=== PATIENT | female | born 1985 | race Caucasian/White ===

== ENCOUNTER 2021-11-01 17:41 | Emergency (ER) | payer OTHER, SELFPAY ==
[2021-11-01 18:09] VITALS: BP 123/81; PULSE 116; RESP 16; TEMP 38; O2SAT 97
[2021-11-01 18:16] VITALS: BP 123/81; PULSE 116; RESP 16; TEMP 38; O2SAT 97
--- NOTE | 2021-11-01 18:54 | ED.URI ---
HPI - URI/Sore Throat General Chief Complaint: Upper Respiratory Infection Stated Complaint: bhavna,throat hurts,cough Source: patient and RN notes reviewed Mode of arrival: ambulatory History of Present Illness HPI Narrative: This is a 36-year-old female presented to urgent care with complaints of a productive cough with greenish sputum, congestion, fever, nausea without vomiting,. Patient notes that she took Robitussin at home for her symptoms which started last night. She did test negative for Covid at work today. The patient denies SOB, CP, palpitation, extremity numbness, lightheadedness, dizziness, constipation, diarrhea, or chills. Related Data Home Medications Medication Instructions Recorded Confirmed levothyroxine 50 mcg PO DAILY 11/01/21 11/01/21 Allergies Allergy/AdvReac Type Severity Reaction Status Date / Time Sulfa (Sulfonamide Allergy Unknown Rash Verified 11/01/21 18:15 Antibiotics) Review of Systems Review of Systems: A 14 organ system Review of Systems was performed and pertinent positives included in the HPI, otherwise remaining ROS is negative. [facility] Family History Family History (Updated 11/01/21 @ 18:54 by AMANDA Magana) Father Family history of liver disease Other Family history non-contributory Social History Social History Smoking status: Never smoker Alcohol intake: current Exam Narrative: GENERAL: This is a well-nourished, well-developed patient, in no apparent distress. HEAD: normocephalic, atraumatic. EYES: PERRL. Sclera clear/white. Vision is grossly intact. EARS: External ears normal, auditory canals clear and without drainage, TMs normal without perforation. Hearing grossly intact. NOSE: External nose normal with no obvious nasal discharge, nares without redness, no rhinorrhea. THROAT: Mucous membranes moist, posterior pharynx clear. NECK: Neck supple, non-tender without lymphadenopathy, masses or thyromegaly. CARDIOVASCULAR: Regular rate and rhythm without murmurs, gallops, or rubs. RESPIRATORY: Clear to auscultation. Breath sounds equal bilaterally. No wheezes, rales, or rhonchi. GASTROINTESTINAL: Abdomen soft, non-tender, nondistended. Bowel sounds are active. No hepato-splenomegaly, or palpable masses. No guarding. SKIN: warm, intact with no suspicious lesions or rash, good texture and turgor. NEURO: awake, alert, and oriented to person, place and time. There were no obvious focal neurologic abnormalities. Steady gait EXTREMITIES: Normal range of motion. No edema. No calf tenderness. Negative Homans sign bilaterally. BACK: Nontender without deformity or crepitance. No flank tenderness. Course Course Emergency Course: Patient was discharged with Tessalon Perles, guaifenesin, Zofran, Flonase Vital Signs Vital signs: Vital Signs Temperature 100.4 F H 11/01/21 18:09 Pulse Rate 116 H 11/01/21 18:09 Respiratory Rate 16 11/01/21 18:09 Blood Pressure 123/81 11/01/21 18:09 Pulse Oximetry 97 11/01/21 18:09 Temperature 100.4 F H 11/01/21 18:16 Pulse Rate 116 H 11/01/21 18:16 Respiratory Rate 16 11/01/21 18:16 Blood Pressure 123/81 11/01/21 18:16 Pulse Oximetry 97 11/01/21 18:16 MDM - URI/Sore Throat Differential Diagnosis Differential diagnosis: Likely upper respiratory infection, sinusitis, viral infection, bronchitis and influenza Lab Data Labs: Influenza A Screen Negative Reference Range: Negative Influenza B Screen Negative Reference Range: Negative Strep Screen Presumptive Negative *(Reference Range: Negative)* Strep Screen Presumptive Negative *(Reference Range: Negative)* Discharge Plan Discharge Clinical Impression: Viral in
== END 2021-11-01 18:53 | disposition home or self-care (01) ==
PROVIDERS: Emergency Provider Nurse Practitioner; PCP Nurse Practitioner Family
DX: B34.9 Viral infection, unspecified (principal)
CPT/HCPCS: 87081; 87804; 87880; 99213; G0463

== ENCOUNTER 2021-11-11 15:43 | Emergency (ER) | payer OTHER, SELFPAY ==
[2021-11-11 15:48] VITALS: BP 130/87; PULSE 98; RESP 16; TEMP 37; O2SAT 100
--- NOTE | 2021-11-11 16:41 | ED.DIZZY ---
HPI - Dizziness General Chief Complaint: Dizziness Stated Complaint: Dizziness Source: patient and RN notes reviewed Limitations: no limitations History of Present Illness HPI Narrative: Vaccinated overweight patient, non-smoker/nondrinker, presents lightheadedness. Patient states she has 1 day history of lightheadedness, that seems at face/ frontal sinuses. Patient was seen here about a week to week and a half ago and treated symptomatically for upper respiratory symptoms of cough that improved. Symptoms are unrelated to position ; no fever, URI?sinusitis now, true vertigo, vomiting/diarrhea/dehydration,speech-visual changes, bleeding--LMP was about 1 month ago. No loss of taste/smell, CP, rash, S OB. Related Data Home Medications Medication Instructions Recorded Confirmed levothyroxine 50 mcg PO DAILY 11/01/21 11/11/21 Allergies Allergy/AdvReac Type Severity Reaction Status Date / Time Sulfa (Sulfonamide Allergy Unknown Rash Verified 11/11/21 16:22 Antibiotics) Review of Systems Review of Systems: General/Constitutional: No weight loss,fever Eyes: N0: Redness,discharge Ears/Nose/Throat: No: Epistaxis,ear discharge Respiratory: Denies: Hemoptysis Gastrointestinal: No Vomiting, Bleeding-rectal Skin: No Lumps, eruption Neurologic: No Focal Weakness,Sz Hematologic: Denies: Petechiae/Purpura Psychiatric: No: Suicida ideationl All Other Systems: Reviewed and Negative [facility] Family History Family History (Updated 11/01/21 @ 18:54 by AKUA Magana-C) Father Family history of liver disease Other Family history non-contributory Social History Social History Smoking status: Never smoker Alcohol intake: current Comments At time of signature, agree with nursing past medical, surgical, social and family history. There is no relevant family history pertinent to the presenting complaint Exam Narrative: General Appearance: Well appearing, Well nourished EYE: PERRLA, Conjunctiva clear, EOMI no nystagmus Neurological: A&O x3, CN II-XII intact, nl finger-nose, gait Ears: Auditory canal normal, TM normal Nose: Rhinorrhea, Mucousal erythema Mouth/Throat: MM moist, Uvula midline, no pharyngeal erythema Neck: Supple, No adenopathy Respiratory: No respiratory distress, Breath sounds equal, Clear to auscultation Cardiovascular: RRR, No JVD Musculoskeletal: Non tender, Normal strength Skin: Warm, Dry Psychiatric: Normal mood, Normal affect Course Vital Signs Vital signs: Vital Signs Temperature 98.6 F 11/11/21 15:48 Pulse Rate 98 11/11/21 15:48 Respiratory Rate 16 11/11/21 15:48 Blood Pressure 130/87 11/11/21 15:48 Pulse Oximetry 100 11/11/21 15:48 Temperature 98.6 F 11/11/21 15:48 Pulse Rate 98 11/11/21 15:48 Respiratory Rate 16 11/11/21 15:48 Blood Pressure 130/87 11/11/21 15:48 Pulse Oximetry 100 11/11/21 15:48 MDM - Dizziness Lab Data Labs: UCG Bedside Result Negative Reference Range: Negative Urine Glucose Negative Reference Range: Negative Urine Bilirubin Negative Reference Range: Negative Urine Ketone Negative Reference Range: Negative Urine Specific [place] 1.015 Reference Range:1.001-1.035 Urine Blood Trace Reference Range: Negative * * Urine pH 6.5 Reference Range: 5.0-9.0 Urine Protein Negative R
== END 2021-11-11 16:49 | disposition home or self-care (01) ==
PROVIDERS: Emergency Provider Emergency Medicine; PCP Nurse Practitioner Family
DX: R42 Dizziness and giddiness (principal); Z20.822 Contact with and (suspected) exposure to COVID-19
CPT/HCPCS: 81003; 81025; 99213; G0463

== ENCOUNTER 2022-11-27 13:37 | Emergency (ER) | payer OTHER, SELFPAY ==
--- NOTE | 2022-11-27 13:42 | ED.FEMALEGU ---
HPI - Female Genitourinary General Chief complaint: Urogenital-Female Stated complaint: poss uti Time Seen by Provider: 11/27/22 13:42 Source: patient and RN notes reviewed History of Present Illness HPI Narrative: patient is a 37-year-old female presents to urgent care with complaint of irritation with urination and urgency of urination after a lot of water intake. Patient states that she uses baby wipes to the periarea which may be a cause of the irritation. Patient has not taken anything [id number] for her symptoms. Denies any fever, chills, nausea, vomiting, abdominal pain, low back pain or other urinary symptoms. No other acute complaints. No acute distress noted. Patient aware of the plan of care. Some parts of this dictation were generated by voice recognition software and may contain typographical and/or grammatical inaccuracies. Related Data Home Medications Medication Instructions Recorded Confirmed levothyroxine 50 mcg tablet 50 mcg PO DAILY 11/01/21 08/11/22 Allergies Allergy/AdvReac Type Severity Reaction Status Date / Time Penicillins Allergy Unknown Rash Verified 08/11/22 10:33 Sulfa (Sulfonamide Allergy Unknown Rash Verified 08/11/22 10:33 Antibiotics) adhesive tape AdvReac Unknown Unknown Verified 08/11/22 10:33 Review of Systems Review of Systems: CONSTITUTIONAL: Denies fever, chills, or sweats. EYES: Denies visual changes, redness, or discharge. ENT: Denies rhinorrhea, congestion, sore throat, or otalgia. CARDIOVASCULAR: Denies chest pain, palpitations, or edema. RESPIRATORY: Denies cough or dyspnea. GASTROINTESTINAL: Denies abdominal pain, nausea, vomiting, or diarrhea. GENITOURINARY: Reports urinary urgency and vaginal irritation SKIN: Denies rash or itching. MUSCULOSKELETAL: Denies back pain, joint pain, or myalgia. NEUROLOGIC: Denies headache, numbness, or weakness. All other systems reviewed are negative, except as documented in HPI. [facility] Past Medical History Medical History (Updated 11/27/22 @ 14:09 by AKUA Gabriel) Abnormal Pap smear of cervix re-ck in february 2019 HPV+/ 03/21/2019 + hpv; 03/22/2020 + hpv colpo 04/18/2020 - benign repeat in 1 year; 05/22/2021 +hpv Anemia Anxiety HPV in female Hypothyroidism Surgical History Surgical History History of 12/24/13 History of colposcopy with cervical biopsy 04/18/20 +hpv--benign 06/12/21 +hpv--benign, repeat co-testing in 1 year History of wisdom tooth extraction (~2003) Family History Family History Father Family history of liver disease Heart disease Hyperthyroidism Mother Hypercholesterolemia Hypertension Grandparent Hyperthyroidism paternal grandfather Breast cancer paternal grandmother Other Hyperthyroidism paternal uncle Social History Social History (Updated 08/11/22 @ 10:36 by MARY Fatima) Smoking status: Never smoker Alcohol intake: never Substance use: never Substance use type: does not use Additional living arrangements comments: 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 There is no relevant family history pertinent to the patient complaint. Exam Narrative: GENERAL: This is a well-nourished, well-developed patient, in no apparent distress. HEAD: normocephalic, atraumatic. EYES: PERRL. Sclera clear/white. Vision is grossly intact. EARS: External ears normal NOSE: External nose normal with no obvious nasal discharge, nares without redness, no rhinorrhea. THROAT: Mucous membranes moist NECK: Neck supple GASTROINTESTINAL: Abdome
[2022-11-27 14:00] VITALS: BP 114/75; PULSE 94; RESP 16; TEMP 37; O2SAT 99
== END 2022-11-27 14:14 | disposition home or self-care (01) ==
PROVIDERS: Emergency Provider Nurse Practitioner Family; PCP Nurse Practitioner Family
DX: N89.8 Other specified noninflammatory disorders of vagina (principal); E03.9 Hypothyroidism, unspecified
CPT/HCPCS: 81003; 99212; G0463

== ENCOUNTER 2023-04-04 08:53 | Emergency (ER) | payer OTHER, SELFPAY ==
[2023-04-04 09:03] VITALS: BP 128/81; PULSE 95; RESP 18; TEMP 36.6; O2SAT 100
--- NOTE | 2023-04-04 09:22 | ED.URI ---
HPI - URI/Sore Throat General Chief Complaint: Upper Respiratory Infection Stated Complaint: sore throat History of Present Illness HPI Narrative: Patient presents with a sore throat nasal congestion and seasonal allergies. Patient is not taking anything [id number] for her symptoms. Patient states she has no trouble swallowing no drooling. No fever no cough. Related Data Home Medications Medication Instructions Recorded Confirmed levothyroxine 50 mcg tablet 50 mcg PO DAILY 11/01/21 04/04/23 Allergies Allergy/AdvReac Type Severity Reaction Status Date / Time Penicillins Allergy Unknown Rash Verified 04/04/23 09:12 Sulfa (Sulfonamide Allergy Unknown Rash Verified 04/04/23 09:12 Antibiotics) adhesive tape AdvReac Unknown Unknown Verified 04/04/23 09:12 Review of Systems Review of Systems: CONSTITUTIONAL: Denies chills, or sweats. Reports fever and generalized body aches EYES: Denies visual changes, redness, or discharge. ENT: Denies otalgia. Reports nasal congestion runny nose and sore throat CARDIOVASCULAR: Denies chest pain, palpitations, or edema. RESPIRATORY: Denies dyspnea. Reports occasional cough GASTROINTESTINAL: Denies abdominal pain, nausea, vomiting, or diarrhea. GENITOURINARY: Denies dysuria or hematuria. SKIN: Denies rash or itching. MUSCULOSKELETAL: Denies back pain, joint pain, or myalgia. Reports generalized body aches NEUROLOGIC: Denies headache, numbness, or weakness. PSYCHIATRIC: Denies anxiety or depression. [facility] Past Medical History Medical History (Updated 04/04/23 @ 09:23 by AKUA Ontiveros) Abnormal Pap smear of cervix re-ck in february 2019 HPV+/ 03/21/2019 + hpv; 03/22/2020 + hpv colpo 04/18/2020 - benign repeat in 1 year; 05/22/2021 +hpv Anemia Anxiety HPV in female Hypothyroidism Surgical History Surgical History History of 12/24/13 History of colposcopy with cervical biopsy 04/18/20 +hpv--benign 06/12/21 +hpv--benign, repeat co-testing in 1 year History of wisdom tooth extraction (~2003) Family History Family History Father Family history of liver disease Heart disease Hyperthyroidism Mother Hypercholesterolemia Hypertension Grandparent Hyperthyroidism paternal grandfather Breast cancer paternal grandmother Other Hyperthyroidism paternal uncle Social History Social History (Updated 08/11/22 @ 10:36 by MARY Fatima) Smoking status: Never smoker Alcohol intake: never Substance use: never Substance use type: does not use Living arrangements: other Additional living arrangements comments: Occupation/Education: occupation 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 There is no relevant family history pertinent to the presenting complaint Exam Narrative: The patient is a well-developed, well-nourished in no acute distress. SKIN: Skin is warm and dry without erythema, swelling or exudate. There is good turgor. No tenting. HEAD: Atraumatic. Normocephalic. No temporal or scalp tenderness. EYES: Moist and bright. Sclera and conjunctivae normal. No discharge. PERRLA. Extraocular motions intact. Gross visual acuity intact. EARS: Pinna is normal shape and contour. Clear external auditory canals. TM pearly macdonald with good cone of light, no erythema or suppuration. Bilateral cerumen noted no gross hearing deficit. NOSE: pink, moist mucosa with good air movement. Clear rhinorrhea without nasal flaring. Septum midline. Mouth: moist mucous membranes. THROAT; mild erythema noted to posterior oropharynx with moderate postnasal drainage.
== END 2023-04-04 09:25 | disposition home or self-care (01) ==
PROVIDERS: Emergency Provider Nurse Practitioner Family; PCP Nurse Practitioner Family
DX: J06.9 Acute upper respiratory infection, unspecified (principal); J02.9 Acute pharyngitis, unspecified; E03.9 Hypothyroidism, unspecified
CPT/HCPCS: 87081; 87880; 99213; G0463

== ENCOUNTER 2023-07-22 11:36 | Emergency (ER) | payer OTHER, SELFPAY ==
[2023-07-22 11:42] VITALS: BP 124/81; PULSE 113; RESP 14; TEMP 36.7; O2SAT 100
--- NOTE | 2023-07-22 11:50 | ED.GENADULT ---
HPI - General Adult General Chief complaint: Neck Pain/Injury Stated complaint: right should/neck pain Time Seen by Provider: 07/22/23 11:50 Source: patient Mode of arrival: ambulatory Limitations: no limitations History of Present Illness HPI narrative: 37 yo F presents with c/o R sided neck pain for 3 to 4 days. States she woke up with the pain. Denies injury. Pain worse when turning neck to R side and when looking down. Taking aleve without relief of pain. No radiation of pain. 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 Asking for stronger pain medications . All systems reviewed and negative except as noted above. Related Data Home Medications Medication Instructions Recorded Confirmed levothyroxine 50 mcg tablet 50 mcg PO DAILY 11/01/21 07/22/23 Allergies Allergy/AdvReac Type Severity Reaction Status Date / Time Penicillins Allergy Unknown Rash Verified 07/22/23 11:51 Sulfa (Sulfonamide Allergy Unknown Rash Verified 07/22/23 11:51 Antibiotics) adhesive tape AdvReac Unknown Unknown Verified 07/22/23 11:51 Review of Systems Review of Systems: CONSTITUTIONAL: Denies fever, chills, or sweats. EYES: Denies visual changes, redness, or discharge. ENT: Denies rhinorrhea, congestion, sore throat, or otalgia. CARDIOVASCULAR: Denies chest pain, palpitations, or edema. RESPIRATORY: Denies cough or dyspnea. GASTROINTESTINAL: Denies abdominal pain, nausea, vomiting, or diarrhea. GENITOURINARY: Denies dysuria or hematuria. SKIN: Denies rash or itching. MUSCULOSKELETAL: Denies back pain, joint pain, or myalgia. Reports and right-sided neck pain. NEUROLOGIC: Denies headache, numbness, or weakness. PSYCHIATRIC: Denies anxiety or depression. All other systems reviewed are negative, except as documented in HPI. [facility] Past Medical History Medical History (Updated 07/22/23 @ 11:59 by Natalia Mayes NP) Abnormal Pap smear of cervix re-ck in february 2019 HPV+/ 03/21/2019 + hpv; 03/22/2020 + hpv colpo 04/18/2020 - benign repeat in 1 year; 05/22/2021 +hpv Anemia Anxiety HPV in female Hypothyroidism Surgical History Surgical History History of 12/24/13 History of colposcopy with cervical biopsy 04/18/20 +hpv--benign 06/12/21 +hpv--benign, repeat co-testing in 1 year History of wisdom tooth extraction (~2003) Family History Family History Father Family history of liver disease Heart disease Hyperthyroidism Mother Hypercholesterolemia Hypertension Grandparent Hyperthyroidism paternal grandfather Breast cancer paternal grandmother Other Hyperthyroidism paternal uncle Social History Social History (Updated 08/11/22 @ 10:36 by Ursula Marcum Gabe) Smoking status: Never smoker Alcohol intake: never Substance use: never Substance use type: does not use Living arrangements: other Additional living arrangements comments: Occupation/Education: occupation 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 There is no relevant family history pertinent to the presenting complaint. Exam Narrative: GENERAL: This is a well-nourished, well-developed patient, in no apparent distress. HEAD: normocephalic, atraumatic. EYES: PERRL. Sclera clear/white. Vision is grossly intact. EARS: External ears normal NOSE: External nose normal NECK: Neck supple,without lymphadenopathy, masses or thyromegaly. no midline tenderness. tenderness and spasm to R trapezius. full ROM. CARDIOVASCULAR: Regular rate and rhythm without murmurs, gallops, or rubs. RESPIRATORY: Clear to auscultation. Breath sounds equal bilaterally. No
== END 2023-07-22 12:06 | disposition home or self-care (01) ==
PROVIDERS: Emergency Provider Nurse Practitioner Family; PCP Nurse Practitioner Family
DX: S16.1XXA Strain of muscle, fascia and tendon at neck level, initial encounter (principal); X58.XXXA Exposure to other specified factors, initial encounter; E03.9 Hypothyroidism, unspecified
CPT/HCPCS: 99213; G0463

== ENCOUNTER 2023-10-19 14:00 | Outpatient (CLI) | payer OTHER, SELFPAY ==
--- NOTE | ~2023-10-19 | US_ITS ---
EXAMINATION: US thyroid DATE: 10/19/2023 14:33 INDICATION: Hypothyroidism TECHNIQUE: Multiple ultrasound images of the thyroid were obtained. COMPARISON: None. FINDINGS: The right thyroid lobe measures 4.5 x 1.4 x 1.4 cm. The left thyroid lobe measures 2.3 x 0.5 x 0.7 c m. 2.2 x 1.1 x 1.4 cm wider than tall mixed solid and cystic nodule with hypoechoic solid component with smooth margins and without internal echogenic foci (TI-RADS 3, mildly suspicious , FNA if >=2.5 cm, annual followup is >=1.5 cm). There is normal echotexture, echogenicity and vascular flow through out the remainder of the thyroid gland. IMPRESSION: 1. 2.2 cm TI RADS 3 right thyroid nodule for which one-year follow-up would be recommended. 2. Atrophic left thyroid lobe. Reviewed, dictated and finalized at location A. [employer] ASSISTANT
== END 2023-10-19 14:01 | disposition home or self-care (01) ==
LOC: ANHIMG 14:01
PROVIDERS: PCP Nurse Practitioner Adult Health; Visit Provider Nurse Practitioner Adult Health
DX: E03.9 Hypothyroidism, unspecified (principal); E04.1 Nontoxic single thyroid nodule
CPT/HCPCS: 76536

== ENCOUNTER 2024-07-14 15:42 | Outpatient (CLI) | payer OTHER, SELFPAY ==
[2024-07-14 19:33] LABS: Add Urine Microscopic? NO; Appearance Urine Clear (Clear); Bilirubin Urine Negative (Negative); Blood Urine Negative (Negative); Color Urine Yellow (Yellow); Glucose Urine UA Negative (Negative); Ketones Urine Negative (Negative); Leukocyte Esterase Ur Negative LEU/UL (Negative); Nitrate Urine Negative (Negative); Protein Urine Negative (Negative); Specific Grav Ur 1.009 (1.001-1.035); Urobilinogen Urine 0.2 mg/dL (<2.0)
== END 2024-07-14 15:43 | disposition home or self-care (01) ==
PROVIDERS: PCP Nurse Practitioner Adult Health; Visit Provider Nurse Practitioner Adult Health
DX: R39.9 Unspecified symptoms and signs involving the genitourinary system (principal)
CPT/HCPCS: 81003; 87086

== ENCOUNTER 2024-10-11 15:37 | Outpatient (CLI) | payer OTHER, SELFPAY ==
[2024-10-11 21:38] LABS: Free T4 Free Thyroxine 0.96 ng/mL (0.78-2.19)
== END 2024-10-11 15:38 | disposition home or self-care (01) ==
LOC: ANHBWCLAB 15:38
PROVIDERS: PCP Nurse Practitioner Adult Health; Visit Provider Nurse Practitioner Adult Health
DX: E03.9 Hypothyroidism, unspecified (principal)
CPT/HCPCS: 36415; 84439; 84443

== ENCOUNTER 2025-06-18 09:32 | Emergency (ER) | payer OTHER, SELFPAY ==
--- OUTSIDE RECORDS SUMMARY | 2025-06-18 09:34 | XMS_ITS | Data Portability ---
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 Plan of Treatment Reminders Order Date Submit Date Provider Last Modified By Organization Details Last Modified Time Details Appointments None recorded. Lab TSH, serum or plasma 2022 023 [facility] (Lab), [address] [place], [address], 3 07:53:23 TSH, serum or plasma 2022 023 [facility], [address] [place], [address], 3 09:14:49 T3, free, serum or plasma 2022 023 [facility], [address] [place], [address], 3 09:14:49 T4, free, serum 2022 023 [email or web address] [facility], [address] [place], [address], 3 09:14:49 Referral None recorded. Procedures None recorded. Surgeries None recorded. Imaging US, thyroid 2022 023 Not available 3 09:46:31 Medication Orders levothyroxi ne 50 mcg tablet 2022 023 [id number], [address], [place], [place], [id number], 3 15:06:08 Patient TargetsNo targets recorded. Patient Instructions Encounter Date Encounter Id Patient Instructions Last Modified By Organization Details Last Modified Time 01/22/2023 [id number] mo fu thyroid, full panel of labs. [email or web address] Not available 01/22/2023 15:07:49 03/11/2023 [id number] FU prn. [email or web address] Not available 03/11 17:27:43 Reason for Referral None Reported. Results Created Date Observation Date Name Description Value Unit Range Abnormal Flag Note LastModifiedBy Organization Detail LastModifiedTime 02/28/20 22 02/27/2022 LIPID PANEL cholesterol 251 mg/dL 140-19 9 high NIH MARIELY NSUS RECOM MENDA TION FOR CUCA STERO L: ADULT CHILD LOW RISK: <200 <170 BORDE RLINE : <200- 239 ----- HIGH RISK: >240 >200 Not Available [facility] (Lab) [address] [place], [address], 02/27/2022 20:14:34 02/28/20 22 02/27/2022 LIPID PANEL triglyceride s 182 mg/dL 0-150 high NIH MARIELY NSUS REPOR T RECOM MENDA TION FOR TRIGL YCERI LI: ADULT CHILD LOW RISK: <150 ----- BODER LINE: 150-1 99 ----- HIGH RISK: >200 ----- Not Available [facility] (Lab) [address] [place], [address], 02/27/2022 20:14:34 02/28/20 22 02/27/2022 LIPID PANEL HDL cholesterol 59 mg/dL 40- Not Available [facility] (Lab) [address] [place], [address], 02/27/2022 20:14:34 02/28/20 22 02/27/2022 LIPID PANEL LDL cholesterol, calculated 156 mg/dL 0-130 high NIH MARIELY NSUS REPOR T RECOM MENDA TIONS FOR LDL: ADULT CHILD LOW RISK <130 <110 (OPTI MAL LDL) <100 ----- BORDE RLINE : 130-1 59 ----- HIGH RISK: >160 >130 A TRIGL YCERI DE RESUL T >400 INVAL IDATE S THE CALCU LATIO N FOR LDL FRACT IONAT ION - THE LDL RESUL T WILL NOT BE REPOR SHAWN. Not Available [facility] (Lab) [address] [place], [address], 02/27/2022 20:14:34 02/28/20 22 02/27/2022 FOLAT E, SERUM /PLAS MA folate >20.0 NG/mL 2.76-2 0.0 Not Available [facility] (Lab) [address] [place], [address], 02/27/2022 21:00:33 02/28/20 22 02/27/2022 VITAM IN B12 (JUANCHO FRANCESCO ) vb12 929 pg/mL 239-93 1 Not Available [facility] (Lab) [address] [place], [address], 02/27/2022 21:00:32 02/28/20 22 02/27/2022 TSH thyroid-stim ulating hormone 2.250 uIU/m L 0.465- 4.680 Not Available [facility] (Lab) [address] [place], [address], 02/27/2022 20:22:44 02/28/20 22 02/27/2022 VITAM IN D 25-HY DROXY vd25oh 51.7 NG/mL 30-100 Vitam in D Statu s: Defic ient: <20 ng/mL Insuf ficie nt: 20-29 ng/mL Suffi cient : 30-10 0 ng/mL Not Available [facility] (Lab) [address] [place], [address], 02/27/2022 20:19:23 02/28/20 22 02/27/2022 HEMOG LOBIN A1C HA1C 5.1 % 4.0-6. 0 Diabe gayatri Maciee jarrod Crite blaise: <5.7% Consi stent with absen ce of diabe gayatri 5.7-6 .4% Consi stent with incre ased risk for diabe gayatri (pred iabet es) >OR=6 .5% Consi stent with diabe gayatri REFER ENCE: Diabe gayatri Care 2015, 39(Hartley ppl.1 ):s13 -s22 Not Available [facility] (Lab) [address] [place], [address], 02/27/2022 20:16:26 02/28/20 22 02/27/2022 COMPR EHENS ADAMA METAB OLIC PANEL agap 13.3 mmol/ L 14-22 low Not Available [facility] (Lab) [address] [place], [address], 02/27/2022 20:14:41 02/28/20 22 02/27/2022 COMPR EHENS ADAMA METAB OLIC PANEL sodium 138 mmol/ L 137-14 5 Not Available [facility] (Lab) [address] [place], [address], 02/27/2022 20:14:41 02/28/20 22 02/27/2022 COMPR EHENS ADAMA METAB OLIC PANEL potassium 4.3 mmol/ L 3.5-5. 1 Not Available [facility] (Lab) [address] [place], [address], 02/27/2022 20:14:41 02/28/20 22 02/27/2022 COMPR EHENS ADAMA METAB OLIC PANEL chloride 104 mmol/ L 98-107 Not Available [facility] (Lab) [address] [place], [address], 02/27/2022 20:14:41 02/28/20 22 02/27/2022 COMPR EHENS ADAMA METAB OLIC PANEL carbon dioxide 25 mmol/ L 22-30 Not Available [facility] (Lab) [address] [place], [address], 02/27/2022 20:14:41 02/28/20 22 02/27/2022 COMPR EHENS ADAMA METAB OLIC PANEL glucose 95 mg/dL 70-99 Not Available [facility] (Lab) [address] [place], [address], 02/27/2022 20:14:41 02/28/20 22 02/27/2022 COMPR EHENS ADAMA METAB OLIC PANEL BUN 13 mg/dL 8-19 Not Available [facility] (Lab) [address] [place], [address], 02/27/2022 20:14:41 02/28/20 22 02/27/2022 COMPR EHENS ADAMA METAB OLIC PANEL creatinine 0.86 mg/dL 0.66-1 .25 Not Available [facility] (Lab) [address] [place], [address], 02/27/2022 20:14:41 02/28/20 22 02/27/2022 COMPR EHENS ADAMA METAB OLIC PANEL GFR >60 Refer ence Range : [place] ge GFR Healt hy Adult : >60 mL/mi n/1.7 3 m2 Chron ic Kidne y Disea se: 15-60 mL/mi n/1.7 3 m2 Kidne y Failu re: <15/m L/min /1.73 m2 www.n iddk. nih.g ov The MDRD study equat ion has not been valid ated in child micaela <18 years of age; pregn ant women ; the elder ly >85 years of age; or in some racia l or ethni c subgr oups, such as Hispa nics. Outsi de the valid ated alex eters , estim ated GFR is less accur ate, requi ring clini jean paul judgm ent on a case- by-ca se basis . Clini jean paul inter preta tion for other races and ages must be made by the clini ramu. The MDRD study equat ion has not been valid ated for the evalu ation of serum creat inine relat ed to nutri stephania l statu s or medic ation usage . For perso ns <18 years of age, a pedia tric GFR calcu lator is avail able on the [facility] websi te: https ://ankur w.martin minory.o rg/pr ofess ional s/kdo qi/gf r_cal culat or Not Available [facility] (Lab) [address] [place], [address], 02/27/2022 20:14:41 02/28/20 22 02/27/2022 COMPR EHENS ADAMA METAB OLIC PANEL alkaline phosphatase 116 U/L 38-126 Not Available [facility] (Lab) [address] [place], [address], 02/27/2022 20:14:41 02/28/20 22 02/27/2022 COMPR EHENS ADAMA METAB OLIC PANEL alanine aminotransfe rase 25 U/L 0-35 Not Available [facility] (Lab) [address] [place], [address], 02/27/2022 20:14:41 02/28/20 22 02/27/2022 COMPR EHENS ADAMA METAB OLIC PANEL aspartate aminotransfe rase 26 U/L 15-37 Not Available [facility] (Lab) [address] [place], [address], 02/27/2022 20:14:41 02/28/20 22 02/27/2022 COMPR EHENS ADAMA METAB OLIC PANEL bilirubin, total 0.70 mg/dL 0.20-1 .30 Not Available [facility] (Lab) [address] [place], [address], 02/27/2022 20:14:41 02/28/20 22 02/27/2022 COMPR EHENS ADAMA METAB OLIC PANEL calcium 10.0 mg/dL 8.4-10 .2 Not Available [facility] (Lab) [address] [place], [address], 02/27/2022 20:14:41 02/28/20 22 02/27/2022 COMPR EHENS ADAMA METAB OLIC PANEL total protein 7.7 g/dL 6.3-8. 2 Not Available [facility]) [address] [facility] [place], [address], 02/27/2022 20:14:41 02/28/20 22 02/27/2022 COMPR EHENS ADAMA METAB OLIC PANEL albumin 4.5 g/dL 3.4-5. 0 Not Available [facility] (Lab) [address] [place], [address], 02/27/2022 20:14:41 02/28/20 22 02/27/2022 COMPR EHENS ADAMA METAB OLIC PANEL globulin 3.2 g/dL 2.6-4. 2 Not Available [facility] (Lab) [address] [place], [address], 02/27/2022 20:14:41 02/28/20 22 02/27/2022 COMPR EHENS ADAMA METAB OLIC PANEL A/G ratio 1.4 ratio 1.0-2. 0 Not Available [facility] (Lab) [address] [place], [address], 02/27/2022 20:14:41 02/28/20 22 02/27/2022 CBC/C OMPLE TE BLD COUNT W/DIF F hematocrit 46.9 % 35.7-4 5.7 high Not Available [facility] (Lab) [address] [facility] [place], [address], 02/27/2022 19:21:14 02/28/20 22 02/27/2022 CBC/C OMPLE TE BLD COUNT W/DIF F white blood cells 12.7 x10'3 /uL 4.2-10 .8 high Not Available [facility] (Lab) [address] [place], [address], 02/27/2022 19:21:14 02/28/20 22 02/27/2022 CBC/C OMPLE TE BLD COUNT W/DIF F red blood cells 5.07 x10'6 /uL 3.80-5 .20 Not Available [facility] (Lab) [address] [place], [address], 02/27/2022 19:21:14 02/28/20 22 02/27/2022 CBC/C OMPLE TE BLD COUNT W/DIF F hemoglobin 15.9 g/dL 12.0-1 5.6 high Not Available [facility] (Lab) [address] [place], [address], 02/27/2022 19:21:14 02/28/20 22 02/27/2022 CBC/C OMPLE TE BLD COUNT W/DIF F mean red cell volume 92.5 fL 82.0-9 9.0 Not Available [facility] (Lab) [address] [place], [address], 02/27/2022 19:21:14 02/28/20 22 02/27/2022 CBC/C OMPLE TE BLD COUNT W/DIF F mean red cell hemoglobin 31.4 pg 27.0-3 3.0 Not Available [facility] (Lab) [address] [place], [address], 02/27/2022 19:21:14 02/28/20 22 02/27/2022 CBC/C OMPLE TE BLD COUNT W/DIF F mean RBC HGB concentratio n 33.9 g/dL 31.0-3 6.0 Not Available [facility] (Lab) [address] [place], [address], 02/27/2022 19:21:14 02/28/20 22 02/27/2022 CBC/C OMPLE TE BLD COUNT W/DIF F red cell distribution width 13.1 % 11.8-1 5.5 Not Available [facility] (Lab) [address] [place], [address], 02/27/2022 19:21:14 02/28/20 22 02/27/2022 CBC/C OMPLE TE BLD COUNT W/DIF F platelets 250 x10'3 /uL 150-40 0 Not Available [facility] (Lab) [address] [place], [address], 02/27/2022 19:21:14 02/28/20 22 02/27/2022 CBC/C OMPLE TE BLD COUNT W/DIF F mean platelet volume 11.1 fL 9.0-12 .4 Not Available [facility] (Lab) [address] [place], [address], 02/27/2022 19:21:14 02/28/20 22 02/27/2022 CBC/C OMPLE TE BLD COUNT W/DIF F neutrophils 64.0 % 39.0-7 2.0 Not Available [facility] (Lab) [address] [place], [address], 02/27/2022 19:21:14 02/28/20 22 02/27/2022 CBC/C OMPLE TE BLD COUNT W/DIF F lymphocytes 25.0 % 16.0-4 7.0 Not Available [facility] (Lab) [address] [place], [address], 02/27/2022 19:21:14 02/28/20 22 02/27/2022 CBC/C OMPLE TE BLD COUNT W/DIF F monocytes 7.7 % 5.0-12 .0 Not Available [facility] (Lab) [address] [place], [address], 02/27/2022 19:21:14 02/28/20 22 02/27/2022 CBC/C OMPLE TE BLD COUNT W/DIF F eosinophils 2.1 % 1.0-7. 0 Not Available [facility] (Lab) [address] [place], [address], 02/27/2022 19:21:14 02/28/20 22 02/27/2022 CBC/C OMPLE TE BLD COUNT W/DIF F basophils 0.9 % 0.0-2. 0 Not Available [facility] (Lab) [address] [place], [address], 02/27/2022 19:21:14 02/28/20 22 02/27/2022 CBC/C OMPLE TE BLD COUNT W/DIF F immature granulocytes 0.3 % 0.00-0 .50 Not Available [facility] (Lab) [address] [place], [address], 02/27/2022 19:21:14 02/28/20 22 02/27/2022 CBC/C OMPLE TE BLD COUNT W/DIF F neutrophils, absolute count 8.13 x10'3 /uL 1.5-8. 0 high Not Available [facility] (Lab) [address] [place], [address], 02/27/2022 19:21:14 02/28/20 22 02/27/2022 CBC/C OMPLE TE BLD COUNT W/DIF F lymphocytes, absolute count 3.17 x10'3 /uL 1.07-3 .43 Not Available [facility] (Lab) [address] [place], [address], 02/27/2022 19:21:14 02/28/20 22 02/27/2022 CBC/C OMPLE TE BLD COUNT W/DIF F monocytes, absolute count 0.98 x10'3 /uL 0.29-0 .99 Not Available [facility] (Lab) [address] [place], [address], 02/27/2022 19:21:14 02/28/20 22 02/27/2022 CBC/C OMPLE TE BLD COUNT W/DIF F eosinophils, absolute count 0.27 x10'3 /uL 0.02-0 .53 Not Available [facility] (Lab) [address] [place], [address], 02/27/2022 19:21:14 02/28/20 22 02/27/2022 CBC/C OMPLE TE BLD COUNT W/DIF F basophils, absolute count 0.11 x10'3 /uL 0.01-0 .08 high Not Available [facility] (Lab) [address] [place], [address], 02/27/2022 19:21:14 02/28/20 22 02/27/2022 CBC/C OMPLE TE BLD COUNT W/DIF F immature granulocytes ,absolute 0.04 x10'3 /uL 0.00-0 .05 Not Available [facility] (Lab) [address] [place], [address], 02/27/2022 19:21:14 02/28/20 22 02/27/2022 CBC/C OMPLE TE BLD COUNT W/DIF F nucleated red blood cells 0.0 % -0 Not Available [facility] (Lab) [address] [place], [address], 02/27/2022 19:21:14 02/28/20 22 02/27/2022 CBC/C OMPLE TE BLD COUNT W/DIF F NRBC# 0.00 x10'3 /uL Not Available [facility] (Lab) [address] [place], [address], 02/27/2022 19:21:14 02/24/20 23 02/24/2023 T4, FREE T4, free 1.2 NG/dL 0.8-1. 8 normal Not Available [facility] [address] [place], [address], 02/24/2023 22:40:09 02/24/20 23 02/24/2023 TSH TSH 2.27 mIU/L normal Refer ence Range > or = 20 Years 0.40- 4.50 Pregn pierre Range s First trime ster 0.26- 2.66 Secon d trime ster 0.55- 2.73 Third trime ster 0.43- 2.91 Not Available [address] [address] [place], [address], 02/24/2023 22:40:10 02/24/20 23 02/24/2023 T3, FREE T3, free 2.9 pg/mL 2.3-4. 2 normal Not Available [facility] [address] [address] [place], [address], 02/24/2023 22:40:11 03/07/20 22 US, head + neck, soft tissu e [facility] [address] [address] [phone] Patien t Name: MAURY LAO Access ion #: [id number] Sex: F : 1984 9 1 Locati on: RA2 Attend ing Physic aaron: NIKOLAY FOX Orderi ng Physic aaron: NIKOLAY FOX Exam Date: 022 1:12 PM Exam Name: US NECK/H EAD SOFT TISSUE Admitt ing Diagno sis(es ): RADIOL OGY REPORT - FINAL EXAM: US NECK/H EAD SOFT TISSUE HISTOR Y: neck swelli ng/lum p 36-yea r-old female with thyroi d goiter , neck swelli ng. COMPAR JEANCARLOS: None availa ble. TECHNI QUE: Ultras ound examin ation of the thyroi d was perfor med. FINDIN GS: The right lobe of the thyroi d measur es 4.6 x 1.1 x 1.3 cm. The left lobe of the thyroi d measur es 1.9 x 0.5 x 0.7 cm. The thyroi d isthmu s measur es 2.0 mm AP. There is a solid isoech oic nodule in the right lobe of the thyroi d with smooth margin s, wider than tall on all images , measur ing up to [address] dimens ion. No solid or cystic nodule s are identi fied in the atroph ic left lobe. No suspic ious calcif icatio ns or abnorm al color Dopple r blood flow. Page 1 of 2 [facility] t Name: MAURY LAO ER Access ion #: [id number] Sex: F : 1984 9 1 Exam Date: 1:12 PM Exam Name: US NECK/H EAD SOFT TISSUE Admitt ing Diagno sis(es ): IMPRES GERHARD: 1. Right thyroi d solid 17 mm nodule is a TI-RAD S 3 lesion , mildly suspic ious. FNA is not recomm ended at this time, as this lesion measur es less than 2.[address] dimens ion. Recomm end follow -up thyroi d ultras ound examin ation in 1 year to assure stabil ity of this appear ance. 2. Atroph ic left thyroi d lobe. Create d and electr onical ly signed by: Giacomo donovan MD Signed Date: 1:36 PM (CT) Dictat ed by: Giacomo donovan MD DD: 1:36 PM (CT) DT: 1:36 PM (CT) Page 2 of 2 [id number] [facility] (Imaging) [address] [place], [address], 01/21/2023 08:13:22 Result Notes None recorded. Problems Name Problem SNOMED Code Status Onset Date Resolution Date Notes Provider Name and Address Organization Details Recorded Time History of asthma 066221233 Active 2018 Not Available [employer] 08:09:13 Past history of section 629728939 Active 2018 Not Available [facility] 3 08:09:13 Hyperthyro idism 61803118 Completed 201801/21/2019 Not Available [facility] 3 08:09:13 Hypothyroi dism 26794192 Active 2018 Not Available [facility] 3 08:09:13 Mixed anxiety and depressive disorder 944403906 Active 2018 Not Available [facility] 3 08:09:13 Thyroid nodule 484412104 Active 2021 Not Available [facility] 3 08:09:13 Onychomyco sis of toenails 827324575 Active 2021 Not Available [facility] 3 08:09:13 Dystrophia unguium 64824316 Active 2021 Not Available [facility] 3 08:09:13 Goiter 6300517 Active 2022 Catrachita Fox NP [address] [facility] [address], [address] , [employer] 3 17:21:24 Problem Notes None recorded. Procedures Surgical History Date Name Laterality Status Provider Name and Address Organization Details Recorded Time 2 Date of Last Pap Smear completed KENYATTA Bates [employer] 01/22/2023 14:34:30 1 OPERATING ROOM TECHNOLOGIST Procedure completed Not Available [facility] 2022 08:06:15 0 Colposcopy completed Not Available [facility] 3 08:06:15 4 section completed Not Available [facility] 01/21/2023 08:06:15 [place] Teeth completed Not Available [facility] 01/21/2023 08:06:15 Imaging Results None recorded. Procedure Notes None recorded. Medical Equipment None Reported. Allergies Allergen ID Allergen Name Allergen Category Reaction Reaction Severity Criticality Documentation Date Start Date Code Code System Note Provider Name and Address Organization Details Recorded Time 35970 Substance with sulfonami de structure and antibacte rial mechanism of action (substanc e) medicatio n Not available Not available Not available 01/21/2023 49130 8003 SNOMED Not Available [facility] 3 08:13:13 80399 Product containin g penicilli n (product) medicatio n rash moderate Not available 01/21/2023 83081 8001 SNOMED Not Available [facility] 3 08:13:14 Medications Name Sig Start Date Stop Date Status Note LastModified by Organization Details LastModified Time fluconazole 150 mg tablet Take 1 tablet by oral route. active Not Available Not Available No t Available Tubersol 5 tub. unit/0.1 mL intradermal injection solution Inject 0.1 mL by intraderm al route. 03/04 completed Not Available Not Available Not Available metronidazo le 500 mg tablet Take 1 tablet twice a day by oral route for 7 days. active Not Available Not Available No t Available ciclopirox 8 % topical solution APPLY TO THE AFFECTED AREA TOPICALLY ONCE DAILY PREFERABL Y AT BEDTIME OR 8 HOURS BEFORE WASHING 01/22 completed Not Available Not Available Not Available terbinafine HCl 250 mg tablet Take 1 tablet every day by oral route. 01/22 completed Not Available Not Available Not Available levothyroxi ne 50 mcg tablet TAKE 1 TABLET BY MOUTH EVERY DAY (last fill until seen 09/01/23) 2022 active Not Available Not Available Not Avai lable methylpredn isolone 4 mg tablets in a dose pack FPD 06/15 completed Not Available Not Available Not Available sertraline 50 mg tablet 1 tab po daily. 01/13 completed Not Available Not Available Not Available chlorhexidi ne gluconate 0.12 % mouthwash SWISH AND SPIT 15 ML BID X 1 WEEK 06/15 completed Not Available Not Available Not Available Estarylla 0.25 mg-0.035 mg tablet TAKE 1 TABLET BY MOUTH EVERY DAY 06/12 completed Not Available Not Available Not Available Vitals Date Recorded Body height Body mass index (BMI) Body weight Body temperature Oxygen saturation Oxygen saturation in Arterial blood by Pulse oximetry Respiratory rate Heart rate Systolic And Diastolic Provider Name and Address Organization Details Last Updated DateTime 3 165.1 cm 31.3 kg/m2 12583.3 7 g 98.8 [degF] 98 % 98 % 18 /min 104 /min 118/70 mm[Hg] Aminta Linton , CCMA [facility] [employer] [facility] 3 14:36:46 Date Recorded Body mass index (BMI) Body height Oxygen saturation Oxygen saturation in Arterial blood by Pulse oximetry Heart rate Body temperature Body weight Systolic And Diastolic Provider Name and Address Organization Details Last Updated DateTime 2 31.5 kg/m2 165.1 cm 99 % 99 % 91 /min 97.6 [degF] 37177.9 6 g 122/82 mm[Hg] Not Available [facility] 3 08:06:35 Date Recorded Body height Body mass index (BMI) Body weight Body temperature Heart rate Respiratory rate Oxygen saturation Oxygen saturation in Arterial blood by Pulse oximetry Pain severity - 0-10 verbal numeric rating [Score] - Reported Systolic And Diastolic Provider Name and Address Organization Details Last Updated DateTime 3 165.1 cm 32.5 kg/m2 75499.9 6 g 98.2 [degF] 81 /min 16 /min 98 % 98 % 0 96/42 mm[Hg] Catrachita Navarro RN [facility] [employer] [facility] 3 17:10:09 Date Recorded Body mass index (BMI) Body height Oxygen saturation Oxygen saturation in Arterial blood by Pulse oximetry Heart rate Body temperature Body weight Systolic And Diastolic Provider Name and Address Organization Details Last Updated DateTime 2 31.3 kg/m2 165.1 cm 99 % 99 % 74 /min 97.8 [degF] 56655.3 7 g 110/78 mm[Hg] Not Available [facility] 3 08:06:35 Date Recorded Body mass index (BMI) Body height Body weight Provider Name and Address Organization Details Last Updated DateTime 05/19/2022 31.3 kg/m2 165.1 cm 81723.37 g Not Available [facility] 01/21/2023 08:06:38 Social History Question Answer Notes LastModified by Organizat ion Details LastModified Time Tobacco Smoking Status Never Smoker Not Available [facility] 01/21/2023 08:05:51 Do You Have An Advance Directive? No [email or web address] Information not available 01/22/2023 Is Blood Transfusion Acceptable In An Emergency? Yes [email or web address] Information not available 01/22/2023 What Is Your Level Of Caffeine Consumption? None [id number] Information not available 01/21/2023 What Is Your Code Status? Full Code [email or web address] Information not available 01/22/2023 In The 14 Days Before Symptom Onset, Have You Had Close Contact With A Laboratory-confir med COVID-19 While That Case Was Ill? No [id number] Information not available 01/21/2023 In The 14 Days Before Symptom Onset, Have You Had Close Contact With A Person Who Is Under Investigation For COVID-19 While That Person Was Ill? No [id number] Information not available 01/21/2023 What Type Of Diet Are You Following? REGULAR [email or web address] Information not available 01/22/2023 Which Illicit Or Recreational Drugs Have You Used? None [id number] Information not available 01/21/2023 What Is The Highest Grade Or Level Of School You Have Completed Or The Highest Degree You Have Received? [id number] [email or web address] Information not available 01/22/2023 How Many Days Of Moderate To Strenuous Exercise, Like A Brisk Walk, Did You Do In The Last 7 Days? 7 Information not available 03/11/2023 On Those Days That You Engage In Moderate To Strenuous Exercise, How Many Minutes, On Average, Do You Exercise? 120 Information not available 03/11/2023 Have There Been Any Changes To Your Family Or Social Situation? No [email or web address] Information no t available 01/22/2023 Do You Use Insect Repellent Routinely? Yes Information not available 01/22/2023 Where Do You Live? Apartment [email or web address] Information not available 01/22/2023 Do You Have A Medical Power Of Drapery And Upholstery Measurer? No [email or web address] Information not available 01/22/2023 How Many Children Do You Have? 1 [email or web address] Information not available 01/22/2023 Do You Have Any Pets? Yes [email or web address] Information not available 01/22/2023 Do You Use Protection During Sex? No [email or web address] Information not available 01/22/2023 What Is Your Relationship Status? [email or web address] Information not available 01/22/2023 Do You Use Your Seat Belt Or Car Seat Routinely? Yes [email or web address] Information not available 01/22/2023 Are You Sexually Active? Yes [email or web address] Information not available 01/22/2023 Do You Have Smoke And Carbon Monoxide Detectors In Your Home? Yes [email or web address] Information not available 01/22/2023 Are You Passively Exposed To Smoke? No [email or web address] Information no t available 01/22/2023 Are There Any Smokers In Your House? Yes Smokes Outside [email or web address] Information not available 01/22/2023 Do You Participate In Social Media? Yes Information not available 03/11/2023 What Types Of Sporting Activities Do You Participate In? Walking Information not available 03/11/2023 Do You Use Sunscreen Routinely? Yes [email or web address] Information not available 01/22/2023 Have You Recently Traveled Abroad? No Information not available 01/22/2023 Are You Currently In School? No [email or web address] Information not available 01/22/2023 Do You Have Any Dietary Restrictions? No [email or web address] Information not available 01/22/2023 Sex: Unknown Functional Status Question Answer Note LastModified by Organizat ion Details LastModified Time What is your level of alcohol consumption? None [id number] Information not available 01/21/2023 Are you currently employed? Yes [email or web address] Information not available 01/22/2023 What is your occupation? class [employer] [id number] Information not available 01/21/2023 Do you or have you ever used e-cigarettes or vape? Never used electronic cigarettes [id number] Information not available 01/21/2023 What is your exercise level? Moderate Information not available 03/11/2023 Mental Status Question Answer Note LastModified by Organization D etails LastModified Time Do you feel stressed (tense, restless, nervous, or anxious, or unable to sleep at night)? [id number] [email or web address] Information not available 01/22/2023 Family History Relationship Description Onset Age of this Age Resolved Age Notes LastModified by Organization Details LastModified Time Father Hyperthyroid ism [id number] Not available 01/21/2023 08:06:15 Father Heart disease [id number] Not available 01/21/2023 08:06:15 Paternal Grandmother Hyperthyroid ism [id number] Not available 01/21/2023 08:06:16 Paternal Grandmother Malignant tumor of breast [id number] Not available 01/21/2023 08:06:16 Paternal Uncle Hyperthyroid ism [id number] Not available 01/21/2023 08:06:16 Mother Hypercholest erolemia [id number] Not available 01/21/2023 08:06:16 Mother Hypertensive disorder [id number] Not available 01/21/2023 08:06:16 Notes:heart disease, cholest marco antonio, high BP, & thyroid/ Medical History Condition Response FEMALE PROBLEMS / INFECTIONS THYROID DISEASE Y HYPOTENSION Y Gynecological History Statement/Question Response Abnormal Pap Y Flow Moderate Date of LMP 02/14/2023 Do your menstrual headaches get severe N Dislike of Light during Menstrual Headac he N STIs/STDs N Date of Last Pap 05/22/2021 Duration of Flow (days) 5 Age at Menarche 13 Most Recent Mammogram Current Control Method None Breast Problems no How many live births 1 Date of Last Colonoscopy Frequency of Cycle (Q days) 28 Most Recent Bone Density Sexually Active? Y Menses Monthly Y Do you get headaches during your period N Date of Last Pap Smear 05/23/2022 Desired Control Method BCPs Discharge no Obstetrics History GPAL:G 1 P 1 0 0 1 Type Value Full Term 1 Living 1 Total 1 Past Encounters Encounter ID Performer Location Encounter Start Date Encounter Closed Date Diagnosis/Indication Diagnosis SNOMED-CT Code Diagnosis ICD10 Code Diagnosis Note [id number] [facility]_M IGR[facility]_ DEFAULT_1 _1 , 05/22/2021 00:00:00 05/22/2021 16:36:31 [id number] [facility]_M I[facility]_ DEFAULT_1 _1 , 06/12/2021 00:00:00 06/12/2021 17:24:03 [id number] Nile Sr MD [facility] [address] [address] 02/27/2022 00:00:00 02/27/2022 13:14:57 [id number] Nile Sr MD [facility]_[address] [address] 05/06/2022 00:00:00 05/06/2022 15:29:25 [id number] [facility] Pod[facility] [place] [address] [place] [address] 05/19/2022 00:00:00 05/19/2022 16:31:28 [id number] Catrachita Fox NP [facility]_[address] [address] 01/22/2023 14:24:10 01/22/2023 15:29:33 Hypothyroidism 80812474 E03.9 levothyrox ine 50 mcg po daily. Labs ordered. 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 Repeat in 1 year due now. Hypothyroidism 84413914 E03.9 Levothyrox ine 50 mcg po daily. Labs done 02/23/23 Health Concerns Section Related Observation LastModified by Organization Detai ls LastModified Time None Recorded Concern Status LastModified by Organization Details LastModified Time None Recorded Advance Directives Directive N: Payers Insurance Date Sequence Insurance Name Policy Number Policy Venegas Covered Member ID Venegas Member ID Guarantor Name 03/10/2023 1 CHARIS [id number] Altagracia Chan [id number] Altagracia Chan Notes Date Note Type Note Provider Name and Address Organization Details Recorded Time 01/22/2023 text/html Pt. here for follow up. 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 Catrachita Fox NP [address] [facility] [address], [place], [address], [employer] [facility] 01/22/2023 15:08:28 03/11/2023 text/html Here for discussion about thyroid medication. Labs 02/23/23.Not sleeping well.Occasional sweating.Feeling hot easily. Sweating.Doesn't Catrachita Fox, LAN [address], [place], [address], [employer] 03/11/2023 17:28:30 OBGyn Episode No OBEpisode recorded.
[2025-06-18 09:40] VITALS: BP 112/68; PULSE 89; RESP 16; TEMP 36.6; O2SAT 98
--- NOTE | 2025-06-18 09:42 | ED_ITS ---
HPI - Skin/Abscess/Foreign Bdy General Chief complaint: Skin/Abscess/Foreign Body Stated complaint: Cut Finger Time Seen by Provider: 06/18/25 09:35 patient presents to [facility] with complaints of laceration to right index finger that happened last night on a can. Patient reports she cleaned the area and held pressure with a paper towel. Patient noted this morning area was still bleeding and she wanted someone to look at this. Noted she is updated on tetanus vaccination Related Data Allergies Allergy/AdvReac Type Severity Reaction Status Date / Time Penicillins Allergy Unknown Rash Verified 06/18/25 09:48 Sulfa (Sulfonamide Allergy Unknown Rash Verified 06/18/25 09:48 Antibiotics) adhesive tape AdvReac Unknown Unknown Verified 06/18/25 09:48 Review of Systems Constitutional: Constitutional: Reports as per HPI, Denies chills, Denies fatigue, Denies fever(s) and Denies weakness Eyes: Eyes: Reports no additional eye complaints ENT: Reports system reviewed and no additional complaints, except as documented Cardiovascular: Cardiovascular: Reports no additional cardiovascular complaints Respiratory: Respiratory: Reports no additional respiratory complaints Gastrointestinal: Gastrointestinal: Reports no additional gastrointestinal complaints Genitourinary: Genitourinary: Reports no additional female genitourinary complaints Musculoskeletal: Musculoskeletal: Reports no additional musculoskeletal complaints Integumentary/Breasts: Skin/Breast: Reports as per HPI, Denies erythema, Denies rash and Denies skin ulcer Comments: laceration right index finger Neurologic: Reports as per HPI, Denies numbness and Denies weakness Psychiatric: Psychiatric: Reports no additional psychiatric complaints Endocrine: Endocrine: Reports no additional endocrine complaints Hematologic/Lymphatic: Hematologic/Lymphatic: Reports no additional hematologic/lymphatic complaints Allergic/Immunologic: Allergic/Immunologic: Reports no additional allergic/immunologic complaints [facility] Past Medical History Medical History (Updated 06/18/25 @ 09:55 by AKUA Holliday-C) Anxiety Anemia Hypothyroidism HPV in female Abnormal Pap smear of cervix re-ck in february 2019 HPV+/ 03/21/2019 + hpv; 03/22/2020 + hpv colpo 04/18/2020 - benign repeat in 1 year; 05/22/2021 +hpv Surgical History Surgical History (Updated 01/13/24 @ 10:57 by Enma Rodas [facility]) Status post surgical removal of nail matrix of toe of right foot History of wisdom tooth extraction (~2003) History of colposcopy with cervical biopsy 04/18/20 +hpv--benign 06/12/21 +hpv--benign, repeat co-testing in 1 year History of 12/24/13 Family History Family History Father Family history of liver disease Heart disease Hyperthyroidism Mother Hypercholesterolemia Hypertension Grandparent Hyperthyroidism paternal grandfather Breast cancer paternal grandmother Other Hyperthyroidism paternal uncle Social History Social History Smoking status: Never smoker Alcohol intake: never Alcohol use details: rarely Substance use: never Substance use type: does not use Lack of Transportation: No Lack of Food: Never True Current Housing: I Have Housing Concerned About Future Housing: No Difficulty Paying Gas/Electric Bills: No Difficulty Paying for Meds: No Currently Unemployed: No Education: Trade/Vocational Certificate Difficulty w/ Childcare or Family Care: No Living arrangements: with family Additional living arrangements comments: Occupation/Education: 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 Gender identity (if verbalized by the patient): Female Sexual Orientation (if Verbalized by the Patient): Straight or Heterosexual Agree to blood products: Yes Exam Const: General: healthy appearing and no acute distress Nutritional Appearance: well nourished Orientation/consciousness: patient oriented x3 Limitations: no limitations Resp: Effort & Inspection: normal respiratory effort Auscultation: clear to auscultation bilaterally Cardio: Rate: regular rate Rhythm: regular rhythm Skin: General skin exam: normal color Rashes: no rashes Wounds: wounds noted Other: very small laceration to palmar side of right index finger. No active bleeding at this time. No gaping Neuro: General: patient oriented x3 and moves all extremities Speech: normal speech Gait exam (Neuro): Normal gait present Extrem: Right upper extremity: Extremity exam: right hand neuromotor exam normal, neurosensory exam normal, vascular exam radial pulse present, ulnar pulse present and normal capillary refill, normal ROM of fingers, no swelling and laceration; no tenderness Psych: Mental Status: mental status grossly normal Affect: normal affect Attitude: cooperative Course Course Level of Care: Express Care Visit MDM - Skin/Abscess/Foreign Bdy MDM Narrative Medical decision making narrative: no closure needed. Discharge instructions reviewed with patient, as well as provided in writing per nursing staff. The instructions also include specific and strict return/GO TO THE ER as well as f/u information. All questions have been answered, and the patient deny any further questions with discharge and discharge plan. Differential Diagnosis Differential diagnosis: Likely allergic reaction to drug, cellulitis, eczema and other ( Abrasion, laceration) Medical Records Attestation: I reviewed the patient's medical records. Discharge Plan Discharge Clinical Impression: Laceration of right index finger Patient Disposition: Home Condition: Stable Instructions: Antibiotic Form, Finger Laceration (ED) Patient Language: Estonian Prescriptions: No Action azithromycin 250 mg tablet See Rx Instructions PO .COMPLEX Qty: 6 0RF Rx Instructions: For 250 mg dose pack: take 500 mg today (day 1), then 250 mg for 4 days (days 2-5) PO levothyroxine 50 mcg tablet See Rx Instructions .ROUTE .COMPLEX Qty: 30 1RF Dose Instruction: TAKE 1 TABLET BY MOUTH DAILY Rx Instructions: TAKE 1 TABLET BY MOUTH DAILY Follow-up/Referrals: Richelle Sosa APRN [Primary Care Provider] - Time of Disposition: 09:55
== END 2025-06-18 09:58 | disposition home or self-care (01) ==
PROVIDERS: Emergency Provider Nurse Practitioner Family; PCP Nurse Practitioner Adult Health
DX: S61.210A Laceration without foreign body of right index finger without damage to nail, initial encounter (principal); W45.8XXA Other foreign body or object entering through skin, initial encounter; E03.9 Hypothyroidism, unspecified
CPT/HCPCS: 99212; G0463

== ENCOUNTER 2025-08-31 11:16 | Outpatient (CLI) | payer OTHER, MEDICAID, SELFPAY ==
[2025-08-31 19:23] LABS: Hematocrit 44.9 % (37.0-47.0); Hemoglobin 14.8 g/dL (12.0-15.0); Mean Corpuscular HGB Conc 33.0 g/dl (32-36); Mean Corpuscular Hemoglobin 29.5 pg (26-34); Mean Corpuscular Volume 89.6 fl (80-100); Platelet Count Result 210 k/mm3 (150-375); Red Blood Count 5.01 M/mm3 (4.2-5.4); White Blood Count 11.9 K/mm3 (4.5-10.0)
[2025-08-31 19:36] LABS: Alanine Aminotransferase 28 U/L (6-35); Albumin Level 4.2 g/dL (3.5-5.1); Alkaline Phosphatase 78 U/L (38-126); Anion Gap 8 mmol/L (4-12); Aspartate Amino Transferase 55 U/L (14-36); Bilirubin,Total 0.4 mg/dL (0.2-1.3); Blood Urea Nitrogen 19 mg/dL (7-17); Calcium 9.6 mg/dL (8.4-10.2); Carbon Dioxide 26 mmol/L (22-30); Chloride 105 mmol/L (98-107); Cholesterol 195 mg/dL (0-200); Estimated Glomerular Filt Rate > 60; Glucose 89 mg/dL (65-110); HDL Direct 38 mg/dL; Potassium 4.0 mmol/L (3.4-5.0); Sodium 139 mmol/L (137-145); Total Protein 7.2 g/dL (6.3-8.2); Triglycerides 143 mg/dL (<150)
[2025-08-31 19:52] LABS: Hemoglobin A1C 5.3 % (<5.7)
[2025-08-31 20:12] LABS: Thyroid Stimulating Hormone 1.430 uIU/mL (0.465-4.680)
== END 2025-08-31 11:17 | disposition home or self-care (01) ==
LOC: ANHBWCLAB 11:17
PROVIDERS: PCP Nurse Practitioner Adult Health; Visit Provider Nurse Practitioner Adult Health
DX: E03.9 Hypothyroidism, unspecified (principal); E66.9 Obesity, unspecified; Z13.9 Encounter for screening, unspecified
CPT/HCPCS: 36415; 80053; 80061; 83036; 84443; 85027